=== PATIENT | male | born 2000 | race Caucasian/White ===

== ENCOUNTER 2023-02-27 18:59 | Day surgery (SDC) | payer SELFPAY ==
[~2023-02-27] VITALS: Ht 182.9 cm; Wt 131.0 kg
[2023-02-27] MEDS ORDERED: PRIMATENE MIS11.7 GM INH (20:20)
[2023-02-27 20:27] LABS: BASOPHILS 0.3 % (0-2); EOSINOPHILS 8.4 % (0-6); HEMATOCRIT 46.8 % (35.0-50.0); HEMOGLOBIN 16.1 g/dL (12.0-18.0); LYMPHOCYTES 29.5 % (24-44); MCH 30.7 (27-36); MCHC 34.3 g/dl (30-36); MCV 89.6 fl (81-99); MONOCYTES 5.6 % (0-12); NEUTROPHILS 56.2 % (39-80); PLATELET COUNT 301 K/uL (140-440); RBC 5.23 M/ul (4.3-5.7); RDW 13.5 (10.5-15.0)
[2023-02-27 20:41] LABS: ALBUMIN 4.2 g/dL (3.4-5.0); ALBUMIN/GLOBULIN RATIO 1.05 (1.1-2.4); ANION GAP 11.8 (7-21); BILIRUBIN, TOTAL 0.2 ng/dL (0.2-1.0); BUN/CREATININE RATIO 7.29 (6.0-28.6); CALCIUM 8.7 mg/dL (8.5-10.1); CREATININE, SERUM 0.96 mg/dL (0.70-1.30); POTASSIUM 3.8 mmol/L (3.5-5.1); PROTEIN, TOTAL 8.2 g/dL (6.4-8.2)
[2023-02-27 20:59] LABS: INFLUENZA B NAA NEGATIVE (NEGATIVE); RESPIRATORY SYNCYTIAL VIR NAA NEGATIVE (NEGATIVE)
[2023-02-27 23:25] VITALS: BP 154/93
[2023-02-27 23:30] VITALS: BP 150/93
[2023-02-27 23:45] VITALS: BP 143/85
--- NOTE | 2023-02-27 23:53 | NUR ---
02/27/23 7073 Yuki Ram 2241- PT ARRIVES TO UNIT VIA STRETCHER FROM OR ON 15 L OF O2 VIA MASK W/ORAL AIRWAY IN PLACE. PT IS REACTIVE TO TACTILE STIMULI BUT DOES NOT OPEN EYES AT THIS TIME. ZANDER BILLS JAW THRUSTING FOR AIRWAY SUPPORT. PT IN SUPINE POSITION. RESPIRATIONS ARE EVEN AND UNLABORED, NO SIGNS OF DISTRESS. 2245- SMITHA RN AND JOSHUA RN AT BEDSIDE PROVIDING JAW THRUST. THIS RN SUCTIONING AIRWAY W/YAUNKAUER. PT VOMITS LARGE AMOUNT OF BROWN/RED EMESIS AND QUICKLY REPOSITIONED TO SIDE AND SUCTION IN PLACE. O2 MASK REMOVED, PT O2 >90% ON RA. 2250- PT IS A&O AND RESPONDS TO QUESTIONS APPROPRIATELY AT THIS TIME. PT POSITIONED IN SEMI FOWLERS IN BED AT THIS TIME ON 10L NEB W/O2 SATS >90%. ZANDER BILLS ADMIN NEBULIZING TX (SEE BLUE SHEET). PT REPORTS NO PAIN OR NAUSEA AT THIS TIME. PT SMALL SPITS SMALL AMOUNT OF DRAINAGE INTO EMESIS BAG OF BROWN COLOR. 2255- NEB COMPLETE, PT TITRATED TO RA. RESPIRATIONS EVEN AND UNLABORED, PT ABLE TO TAKE DEEP BREATHS W/OUT DIFFICULTY AT THIS TIME. O2 SATS VIA CONTINUOUS PULSE OX >90%. PT CONTINUES TO REPORT NO PAIN OR NAUSEA AT THIS TIME. 2256- CECILIO JAIME AT BEDSIDE PROVIDING REPORT OF OPERATION TO PT, PT A&O AND ASKING QUESTIONS APPROPRIATELY. 2305- PT SITTING UP IN BED AND CONTINUES TO REPORT NO PAIN OR NAUSEA. PT OCCASIONAL SPITS INTO EMESIS BAG OF SCANT AMOUNTS OF BROWN SPIT. 2325- PT TRANSPORTED TO CCU VIA STRETCHER BY THIS RN. PT STANDBY ASSIST TO CCU BED W/OUT DIFFICULTY. REPORT GIVEN TO CCU RN. PT CONTINUES TO REPORT NO PAIN OR NAUSEA. BED IN LOCKED POSITION. CCU RN AND PT STATE NO FURTHER NEEDS OR CONCERNS AT THIS TIME.
[2023-02-28] VITALS: BP 134/81
[2023-02-28 00:15] VITALS: BP 147/87
[2023-02-28 00:30] VITALS: BP 136/83
[2023-02-28 00:45] VITALS: BP 152/87
[2023-02-28 00:50] VITALS: BP 146/78
--- NOTE | 2023-02-28 01:05 | NUR ---
PT UP OUT OF BED AMBULATING WELL. PT GOT DRESSED INDEPENDENTLY IN THE BATHROOM AFTER URINATING. PT WAS ABLE TO SWALLOW SMALL SIP OF WATER WITH OUT A PROBLEM. PT VS ARE STABLE AND WITH IN NORMAL LIMITS. PT RASS OF 0, AND A&OX4. PT AND FRIENDS EDUCATED AT BEDSIDE, VERBALIZED AN UNDERSTANDING. PT DOES STILL HAVE BLOOD TINGED ORAL SECRETIONS BUT LIGHTENING IN COLOR. PT THE WALKED TO WHEELCHAIR.
--- NOTE | 2023-02-28 05:10 | NUR ---
PT ARRIVED TO UNIT, PT IS AWAKE BUT SLIGHTLY DROWSY. ABLE TO ANSWER MY QUESTIONS APPROPRIATLY. VS ARE STABLE AND WITH IN NORMAL LIMITS. PT LUNGS ARE CLEAR. PT DOES HAVE ELEVATED BP, BUT IS TRENDING DOWN. PT IS SPITTING OUT BLOOD TINGED ORAL SECRETIONS BUT IS LIGHTENING IN COLOR. PT HAS SOME MINIMAL PAIN IN HIS THROUGHT BUT ITS MANAGABLE. ALL QUESTIONS AND CONCERNS ADDRESSED. CALL LIGHT WITH IN REACH.
--- NOTE | 2023-03-03 13:56 | CONS ---
[facility] [place] [facility] [address] [place], [place] [address] Signed DATE OF CONSULTATION: 02/27/2023 TIME: 11:00 p.m. The patient tolerated upper endoscopy well and was found to have almost certainly eosinophilic esophagitis accounting for his food impaction. He also had a coincidental Lillian-Cordero tear which was significant, but not through and through. The patient does have some developmental delay and I am uncertain that he would understand fully my instructions to him. On that basis, I called his sister, Annalisa Carlos at . I outlined the problem to her that he has and the proposed treatment to include PPI medication and Prilosec 20 mg p.o. daily, Carafate slurry 1 g p.o. q.i.d. swallowed, fluticasone spray two puffs b.i.d. swallowed for three weeks with one week abstinence as well as dietary recommendation. He should have liquid diet for the next 48 hours and for 72 hours thereafter have a mechanical soft diet. He can resume a regular diet after that time. I have asked him to call my office at [phone] to set up an appointment for a month from now or so. If he has problems in the meantime, I am happy to see him. MD ERWIN Avitia/KEVIN /[id number] cc: Dr. Mooney Copies: ~ Electronically Signed By: ZANDER HERNANDES MD 03/03/23 1356 PATIENT NAME: ONI KONG CONSULTATION DATE OF : [birth year] REPORT #: [id number] PHYSICIAN: ZANDER HERNANDES MD PCP: NO PRIMARY CARE PHYSICIAN REPORT IS CONFIDENTIAL AND NOT TO BE RELEASED WITHOUT AUTHORIZATION
--- NOTE | 2023-03-03 13:56 | OR ---
[facility] [address] [place], [place] [address] Signed DATE OF OPERATION: 02/27/2023 SURGEON: Zander Hernandes MD TIME: 10 :40 p.m. PROBLEMS: 1. Recurrent food impaction with associated hematemesis. 2. Developmental delay. POSTOPERATIVE DIAGNOSES: 1. Significant mucosal defect of esophagus consistent with upper to mid Lillian-Cordero tear. 2. Felinization of esophagus with narrowing midesophagus highly consistent with eosinophilic esophagitis. 3. Spontaneous passage of food impaction. PROCEDURE: Esophagogastroduodenoscopy with biopsy. ANESTHESIA: General endotracheal, Zander Jaime CRNA. INDICATION: This very large 22-year-old white man has developmental delay, who is high functioning working at [employer]. He has had recurrent bouts of dysphagia and food impaction type symptoms. He presented this evening following a dinner of macaroni and cheese that had large sausage chunks in it. He was noted to have food impaction, felt to be in the mid sternal area with hypersalivation. In time, he developed significant hematemesis, which currently has resolved. He is considered likely to still have food impaction and on that basis emergency upper endoscopy with disimpaction is anticipated. He understands as does his [id number] with whom he lives the risk of bleeding, infection, and perforation related to upper endoscopy and wished to proceed. FINDINGS: Narrowing in the midesophagus was such that the change of the esophagoscope to the older and more narrow scopes was required to pass the area. Concentric rings highly consistent with eosinophilic esophagitis were noted. The food bolus was passed beyond to the stomach. The distal esophagus had no stricture, certainly no Ulloa's epithelium or Electronically Signed By: ZANDER HERNANDES MD 03/03/23 1356 PATIENT NAME: ONI KONG OPERATIVE REPORT DATE OF : [birth year] REPORT #: [id number] PHYSICIAN: ZANDER HERNANDES MD PCP: NO PRIMARY CARE PHYSICIAN REPORT IS CONFIDENTIAL AND NOT TO BE RELEASED WITHOUT AUTHORIZATION [facility] [address], [place] [address] Signed other obvious pathology. Stomach and duodenum were normal. There was no sign of hiatal hernia that I could see. There was indeed a mucosal tear in the proximal to mid esophagus consistent with high level Lillian-Cordero type tear, but without through and through perforation. The underlying etiology of his problem is quite likely eosinophilic esophagitis. By conclusion, the esophagus was completely clear. There is no sign of ongoing bleeding of the Lillian-Cordero tear and the stomach and duodenum were normal otherwise. DESCRIPTION OF PROCEDURE: The patient was brought to the endoscopy suite and was given a general endotracheal anesthetic so as to protect his airway. A bite block was placed. He remained in the supine position. The Olympus video upper endoscope was passed in the hypopharynx and beyond into the esophagus without problem. Approximately [address] down the esophagus, concentric rings were identified consistent with eosinophilic esophagitis. A Lillian-Cordero tear was noted which was relatively lengthy and relatively deep, but without notable full-thickness perforation. The scope would not advance beyond this site and would rather than traumatize the esophagus further, the scope was removed and a smaller diameter upper endoscope was passed. This was able to pass through the narrow area quite well. Minimal amount of food impaction distal esophagus was easily pushed into the stomach. The stomach itself appeared normal as did the duodenum. Retroflexed view was obscured by food particles, though there was no clear evidence of large hiatal hernia in any way. The scope was withdrawn and irrigation undertaken and biopsies taken of the distal esophageal mucosa though it appeared reasonably normal. The scope was withdrawn to the mid esophagus where the concentric rings were identified and highly consistent with the eosinophilic esophagitis. Good biopsies were obtained there. Irrigation was undertaken on the Lillian-Cordero tear more proximal to this. There was no sign of full-thickness defect or sign of ongoing bleeding. Careful withdrawal of the scope showed no other findings of concern. He was ultimately extubated and transferred to the recovery room in good condition. CONCLUDING DIAGNOSES: 1. Almost certainly eosinophilic esophagitis related dysphagia and food impaction. 2. Associated Lillian-Cordero like tear of the mid to upper esophageal mucosa. PLAN: We will initiate PPI medication Prilosec 20 mg daily as well as Carafate slurry 1 g p.o. q.i.d. and initiate fluticasone two puffs swallowed b.i.d. We will see him in the office in 3 to 4 weeks and outline a plan going forward following confirmation of the diagnosis. Electronically Signed By: ZANDER HERNANDES MD 03/03/23 2892 PATIENT NAME: ONI KONG OPERATIVE REPORT DATE OF : [birth year] REPORT #: [id number] PHYSICIAN: ZANDER HERNANDES MD PCP: NO PRIMARY CARE PHYSICIAN REPORT IS CONFIDENTIAL AND NOT TO BE RELEASED WITHOUT AUTHORIZATION [address] [address] Signed MD ERWIN Avitia/CINDYL /[id number] cc: Dr. Mooney Copies: ~ Electronically Signed By: ZANDER HERNANDES MD 03/03/23 1356 PATIENT NAME: ONI KONG OPERATIVE REPORT DATE OF : [birth year] REPORT #: [id number] PHYSICIAN: ZANDER HERNANDES MD PCP: NO PRIMARY CARE PHYSICIAN REPORT IS CONFIDENTIAL AND NOT TO BE RELEASED WITHOUT AUTHORIZATION
--- NOTE | 2023-03-03 13:56 | CONS ---
[facility] [address] [place], [place] [address] Signed DATE OF CONSULTATION: 02/27/2023 Emergency Room consultation Note. TIME: 9:40 p.m. PROBLEM: Esophageal meat impaction with some hematemesis. HISTORY OF PRESENT ILLNESS: This large and obese white man, who works at [employer], is accompanied by his [id number] with whom he lives. At approximately 6:00 p.m., he was eating a macaroni dinner that has meat chunks in it and noticed aggressive hypersalivation with sensation of food stuck in the esophagus. This manifest by hypersalivation. The patient has had these episodes before the last a few weeks ago, he says. He denies routine gastroesophageal reflux, however. The patient has never had endoscopic evaluation nor need for extraction of any food impaction or foreign body in the esophagus. He has had no surgery on the esophagus or stomach. Evaluation by Dr. Mooney included a CBC, Chem 20, and serology test showing no evidence of COVID and normal hematocrit of 48.6, normal white count and normal electrolytes. PAST MEDICAL HISTORY: Notable for developmental delay, though he is reasonably independent. He works at [employer] according to his [id number]-[id number]-sch who accompanies him. REVIEW OF SYSTEMS: The patient has mild epigastric pain. He has coughed up some blood during the course of this episode. None previously. He has underlying asthma for which he uses albuterol from time to time, but having no such problems currently. MEDICATIONS: His medication list is empty. PHYSICAL EXAMINATION: GENERAL: A very large white man, who appears to be alert and oriented. He shows no sign of toxicity. His developmental delay is rather subtle. NECK: Trachea is midline. LUNGS: He has no crepitus. CHEST: Shows normal respiratory excursion. ABDOMEN: Quite obese, but nontender at this time. EXTREMITIES: Show no clubbing, cyanosis, or edema. Electronically Signed By: ZANDER HERNANDES MD 03/03/23 1356 PATIENT NAME: ONI KONG CONSULTATION DATE OF : [birth year] REPORT #: [id number] PHYSICIAN: ZANDER HERNANDES MD PCP: NO PRIMARY CARE PHYSICIAN REPORT IS CONFIDENTIAL AND NOT TO BE RELEASED WITHOUT AUTHORIZATION [facility] [address] [place], [place] [address] Signed ASSESSMENT: The patient has clinical findings suggestive of food impaction based on eating macaroni with sausage chunks in it. He has had similar dysphagia ongoing and previously had a fair amount of hypersalivation. He does have some bloody effluent in his spit bag that has been provided to him. Very likely he does have inflammatory change related to his food impaction, unlikely does he have an actual perforation already. It is certainly possible. I would recommend upper endoscopy under appropriate sedation or anesthesia and extraction or clearance of the food impaction or other abnormality as indicated. The risk of bleeding, infection, perforation, and so forth were reviewed with the patient and his [id number]. They both understand and agree that he proceed. MD ERWIN Avitia/CINDYL /[id number] cc: DR. MOONEY Copies: ~ Electronically Signed By: ZANDER HERNANDES MD 03/03/23 1356 PATIENT NAME: ONI KONG CONSULTATION DATE OF : [birth year] REPORT #: [id number] PHYSICIAN: ZANDER HERNANDES MD PCP: NO PRIMARY CARE PHYSICIAN REPORT IS CONFIDENTIAL AND NOT TO BE RELEASED WITHOUT AUTHORIZATION
== END 2023-02-28 01:05 | disposition home or self-care (01) ==
LOC: ED 18:59 → DS 21:55 → DSVR 21:55 → DS 02-28 01:05
PROVIDERS: Family Medicine; ATTEND Surgery
PROC: 0DB28ZX Excision of Middle Esophagus, Via Natural or Artificial Opening Endoscopic, Diagnostic (ICD-10-PCS; 2023-02-27)
PROC: 0DC38ZZ Extirpation of Matter from Lower Esophagus, Via Natural or Artificial Opening Endoscopic (ICD-10-PCS; 2023-02-27)
PROC: 0DB38ZX Excision of Lower Esophagus, Via Natural or Artificial Opening Endoscopic, Diagnostic (ICD-10-PCS; principal; 2023-02-27 22:01)
DX: T18.120A Food in esophagus causing compression of trachea, initial encounter (principal); Z20.822 Contact with and (suspected) exposure to COVID-19; E66.9 Obesity, unspecified; Z68.39 Body mass index [BMI] 39.0-39.9, adult; K92.0 Hematemesis; K22.6 Gastro-esophageal laceration-hemorrhage syndrome; K20.0 Eosinophilic esophagitis
CPT/HCPCS: 00731; 36415; 80053; 85025; 87502; C9803; J0330; J1100; J1610; J1885; J2405; J2704; U0002